=== PATIENT | male | born 1990 | race Caucasian/White ===

== ENCOUNTER → 2022-08-30 | Outpatient (REF) | payer SELFPAY ==
[2022-09-02 13:08] LABS: Cotinine Screen Blood <1.0 ng/mL (.); Nicotine Blood <1.0 ng/mL (.)
== END ==
LOC: LABSPEC 12:15
PROVIDERS: Referring Provider Registered Nurse; Visit Provider Registered Nurse
DX: Z00.00 Encounter for general adult medical examination without abnormal findings (principal)
CPT/HCPCS: 80323; G0480